=== PATIENT | male | born 1960 | race Caucasian/White ===

== ENCOUNTER 2025-06-01 12:31 | Emergency (ER) | payer BC, SELFPAY ==
[2025-06-01] VITALS (14 sets, daily range): BP systolic 126–152; BP diastolic 83–88; PULSE 79–82; TEMP 36.6; O2SAT 92–93; BMI 31.6
--- NOTE | 2025-06-01 13:27 | ECG_ITS ---
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 Measurements Intervals [place] Rate: 74 P: 26 MO: 162 QRS: 27 QRSD: 88 T: -30 QT: 354 QTc: 381 Interpretive Statements 1100 Sinus rhythm 4068 Nonspecific Twave abnormality 9130 borderline ECG Compared to ECG 06/01/2020 10:52:07 No significant changes Electronically Signed On 06-01-2025 17:24:16 EST by ERICK ORDONEZ M.D.
--- NOTE | 2025-06-01 13:27 | XR_ITS ---
The [address] [address] Patient Name: TITA POWERS MRN: [id number] date: 1960 Sex: M Assigned Patient Location: ER Current Patient Location: ED.MAIN Accession/Order Number: [id number] Exam Date: 06/01/2025 13:45 Report Date: 06/01/2025 14:01 At the request of: ROBERT SHEETS MD Procedure: XR chest 1V PORTABLE AP ERECT CHEST 1345 hours CLINICAL HISTORY: Right chest pain, shortness of breath and hemoptysis. Recent shoulder replacement. COMPARISON: 06/01/2020 There is shallow inspiration. The hemidiaphragms are not well seen, right greater than left. This could be due to adjacent basilar atelectasis and/or infiltrate. Pleural effusion is not excluded without a lateral view. No pneumothorax is identified. The heart appears mildly prominent though may be accentuated by low lung volume. The hilar and mediastinal contours are similar. A new left shoulder prosthesis is seen. XR/XR chest 1V IMPRESSION: SHALLOW INSPIRATION. BIBASILAR PARENCHYMAL AND POSSIBLE PLEURAL CHANGE. CLINICAL CORRELATION IS SUGGESTED. A 2 VIEW EXAM MAY BE HELPFUL FOR FOLLOW-UP, WARRANTED. Impression dictated by: Brittaney Langley M.D. 06/01/2025 2:01 PM Dictation Location: [facility] Electronically authenticated by: [id number] Y Date: 06/01/2025 14:01
--- NOTE | 2025-06-01 13:28 | ED_ITS ---
HPI HPI - General Adult General Chief complaint: Back Pain/Injury Stated complaint: SOB BACK PAIN Time Seen by Provider: 06/01/25 13:18 Source: patient Mode of arrival: walk-in Limitations: no limitations History of Present Illness HPI narrative: 64-year-old male presented to the emergency department for pain on the right side of his chest and cough and hemoptysis. He coughed up some dark blood twice. He had left shoulder replacement about a week ago at the [place] [facility]. He has never had a blood clot. He is a non-smoker. He states he has been getting up and moving around as much as he should be. No swelling in his legs or calf pain. Related Data Previous Rx's ?Medication ?Instructions ?Recorded azithromycin 250 mg tablet See Rx Instructions PO .COM PLEX #6 06/01/25 (Zithromax Z-Buddy) tabs Allergies Allergy/AdvReac Type Severity Reaction Status Date / Time lisinopril Allergy Unknown COUGHING Verified 06/01/25 12:37 tramadol Allergy Unknown HYPERACTIVI Verified 06/01/25 12:37 TY Opioid HPI Opioid Management Most Recent Opioid Data: Last Pain Scale 6 Today, 12:45 Review of Systems ROS Narrative A ten point review of systems is negative except as noted above. PFSH PFSH Social History Little interest or pleasure in doing things: not at all Feeling down, depressed, or hopeless: not at all Exam Narrative Exam Narrative: Nurses note and vital signs reviewed General:The patient appears well and in no apparent distress.Patient is resting comfortably on cart. Skin:Warm, dry, no pallor noted.There is no rash noted. Head:Normocephalic, atraumatic Eye: Normal conjunctiva, no drainage Ears, Nose, Mouth, and Throat: oral mucosa is moist. Nares patent. Cardiovascular:Regular Rate and Rhythm Respiratory:Patient is in no distress, no accessory muscle use, lungs are clear to auscultation, no wheezing, rales or rhonchi Back:non-tender GI: Soft and nontender Musculoskeletal: Left arm is in a sling. No calf tenderness or swelling Neurological:A&O, normal speech Psychiatric:Cooperative Constitutional Vital Signs, click to edit/add: Last Vital Signs Temp 97.8 F 06/01/25 12:37 Pulse 79 06/01/25 13:42 Resp 14 06/01/25 13:42 BP 142/83 H 06/01/25 14:44 Pulse Ox 92 L 06/01/25 14:50 O2 Del Method Room Air 06/01/25 12:45 Course Vital Signs Vital signs: Vital Signs Temperature 97.8 F 06/01/25 12:37 Pulse Rate 82 06/01/25 12:37 Respiratory Rate 18 06/01/25 12:37 Blood Pressure 152/88 H 06/01/25 12:37 Pulse Oximetry 92 L 06/01/25 12:37 Oxygen Delivery Method Room Air 06/01/25 12:37 Temperature 97.8 F 06/01/25 12:37 Pulse Rate 79 06/01/25 13:42 Respiratory Rate 14 06/01/25 13:42 Blood Pressure 142/83 H 06/01/25 14:44 Pulse Oximetry 92 L 06/01/25 14:50 Oxygen Delivery Method Room Air 06/01/25 12:45 Medical Decision Making MDM Narrative Medical decision making narrative: CTA shows no evidence of PE but does show pneumonia. He is not hypoxemic, current room air O2 sat is 94%. He does not have a fever and other blood work is appropriate. We discussed admission versus discharge home and the patient is comfortable being discharged home. He was given IV Zithromax here and prescribe Zithromax. He will return if symptoms worsen and otherwise will follow-up with his PCP. Treatment diagnosis and follow-up were discussed with the patient and his . Differential Diagnosis Differential Diagnosis: PE, pneumonia Lab Data Lab results reviewed: Yes I reviewed the patient's lab results Labs: Lab Results 06/01/25 Range/Units 13:37 WBC 14.4 H (4.0-11.0) 10^3/uL RBC 4.26 L (4.70-6.10) 10^6/uL Hgb 12.9 L (14.0-18.0) g/dL Hct 37.3 L (42.0-54.0) % MCV 87.6 (80.0-94.0) fL MCH 30.3 (25.9-34.0) pg MCHC 34.6 (29.9-35.2) g/dL RDW 12.0 (11.0-15.0) % Plt Count 239 (150-450) 10^3/uL MPV 9.0 L (9.5-13.5) fL Neut % (Auto) 81.5 H (43.0-75.0) % Lymph % (Auto) 7.4 L (20.5-60.0) % [place] % (Auto) 8.7 (1.7-12.0) % Eos % (Auto) 1.3 (0.9-7.0) % Baso % (Auto) 0.2 (0.2-2.0) % Neut # (Auto) 11.7 H (1.4-6.5) 10^3/uL Lymph # (Auto) 1.1 L (1.2-3.8) 10^3/uL [place] # (Auto) 1.3 H (0.3-0.8) 10^3/uL Eos # (Auto) 0.2 (0.0-0.7) 10^3/uL Baso # (Auto) 0.0 (0.0-0.1) 10^3/uL Abs Immat Gran (auto) 0.13 H (0.00-0.03) 10^3/uL Imm/Tot Granulo (auto) 0.9 H (0.0-0.5) % Sodium 135 L (136-145) mmol/L Potassium 3.8 (3.5-5.1) mmol/L Chloride 100 (98-107) mmol/L Carbon Dioxide 27.9 (21.0-32.0) mmol/L Anion Gap 10.9 BUN 19.0 H (7.0-18.0) mg/dL Creatinine 0.95 (0.70-1.30) mg/dL Est GFR ( Amer) >60 (>=60 mL/min/1.73m^2) Est GFR (Non-Af Amer) >60 (>=60 mL/min/1.73m^2) BUN/Creatinine Ratio 20.0 Glucose 107 H (74-106) mg/dL Calcium 9.6 (8.5-10.1) mg/dL Troponin I High Sens 7.1 (4.0-76.1) pg/mL Imaging Data Chest x-ray: Radiologist's impression: ITS Impressions Chest X-Ray 06/01/25 13:27 IMPRESSION: SHALLOW INSPIRATION. BIBASILAR PARENCHYMAL AND POSSIBLE PLEURAL CHANGE. CLINICAL CORRELATION IS SUGGESTED. A 2 VIEW EXAM MAY BE HELPFUL FOR FOLLOW-UP, WARRANTED. Impression dictated by: Brittaney Langley M.D. 06/01/2025 2:01 PM Dictation Location: [employer] Electronically authenticated by: [id number] Y Date: 06/01/2025 14:01 Chest CTA 06/01/25 14:05 IMPRESSION: Airspace opacities are noted in the right lower lobe suspicious for pneumonia. There is a small right-sided pleural effusion. There are lesser degrees of airspace opacity in the left lower lobe which are pleural in nature present representing atelectasis. No evidence of pulmonary embolism. Impression dictated by: Fuentes Bond M.D. 06/01/2025 3:06 PM Dictation Location: [employer] [facility] [employer] Electronically authenticated by: [id number] Y Date: 06/01/2025 15:06 ECG Data Attestation: I personally reviewed and interpreted this ECG as follows: (EKG my interpretation shows sinus rhythm with rate of 74 no acute change) Discharge Plan Discharge Chief Complaint: Back Pain/Injury Clinical Impression: Pneumonia Patient Disposition: Home, Self-Care Time of Disposition Decision: 16:06 Condition: Good Mode of Transportation: Private Vehicle Prescriptions / Home Meds: New azithromycin [Zithromax Z-Buddy] 250 mg tablet See Rx Instructions .ROUTE .COMPLEX Qty: 6 0RF Rx Instructions: For 250 mg dose pack: take 500 mg today (day 1), then 250 mg for 4 days (days 2-5) Print Language: Lithuanian Instructions: Community Acquired Pneumonia (ED) Additional Instructions: Return to the emergency department over the weekend if you worsen. See your doctor early next week for recheck. Referrals: KEVIN JI [Primary Care Provider, Family Practice] - 1 week
[2025-06-01 13:54] LABS: Hematocrit 37.3 % (42.0-54.0); Hemoglobin 12.9 g/dL (14.0-18.0); Immature Granulocytes Abs Auto 0.13 10^3/uL (0.00-0.03); Immature Granulocytes Pct Auto 0.9 % (0.0-0.5); Lymphocytes Absolute Auto 1.1 10^3/uL (1.2-3.8); Mean Corpuscular HGB Conc 34.6 g/dL (29.9-35.2); Mean Corpuscular Hemoglobin 30.3 pg (25.9-34.0); Mean Corpuscular Volume 87.6 fL (80.0-94.0); Platelet Count 239 10^3/uL (150-450); Red Blood Count 4.26 10^6/uL (4.70-6.10); White Blood Count 14.4 10^3/uL (4.0-11.0)
--- NOTE | 2025-06-01 14:05 | CT_ITS ---
[address] [address] Patient Name: TITA POWERS MRN: [id number] date: 1960 Sex: M Assigned Patient Location: ER [facility] Access[facility]/Order Number: [id number] Exam Date: 06/01/2025 14:30 Report Date: 06/01/2025 15:06 At the request of: ROBERT SHEETS MD Procedure: CT angio chest CT angio chest 06/01/2025 2:38 PM SIGN AND SYMPTOMS: ^Short of breath, hemoptysis, recent surgery CONTRAST: 100 mL of intrasinus Omnipaque 350 TECHNIQUE: Multidetector CT axial slices of the chest were obtained with IV contrast. Multiplanar reformats were performed and viewed on a separate workstation and reviewed to further define anatomy and possible pathology. CT was performed with one or more of the following dose reduction techniques: Automated exposure control, adjustment of the mA and/or kV according to patient size, or use of iterative reconstruction technique. COMPARISON: None. FINDINGS: Lower neck: Thyroid gland within normal limits, no supraclavicle adenopathy. Vessels: Atherosclerotic changes are noted in the coronary arteries. There is no evidence of pulmonary embolism. Mediastinum and Marium: Within normal limits. Heart: Normal size. No pericardial effusion. Airways: Within normal limits Lungs: Airspace opacities are noted in the right lower lobe suspicious for pneumonia. There are lesser degrees of airspace opacity in the left lower lobe which are pleural in nature present representing atelectasis. Pleura: There is a small right-sided pleural effusion. Chest Wall: Postsurgical changes are noted along the anterior aspect of the left shoulder. Upper Abdomen: Within normal limits. Bones: There is left shoulder arthroplasty hardware. Degenerative changes are noted in the thoracic spine. CT/CT angio chest IMPRESSION: Airspace opacities are noted in the right lower lobe suspicious for pneumonia. There is a small right-sided pleural effusion. There are lesser degrees of airspace opacity in the left lower lobe which are pleural in nature present representing atelectasis. No evidence of pulmonary embolism. Impression dictated by: Fuentes Bond M.D. 06/01/2025 3:06 PM Dictation Location: [place] [address] Electronically authenticated by: [id number] Y Date: 06/01/2025 15:06
[2025-06-01 14:14] LABS: Anion Gap 10.9; Blood Urea Nitrogen 19.0 mg/dL (7.0-18.0); Calcium 9.6 mg/dL (8.5-10.1); Carbon Dioxide 27.9 mmol/L (21.0-32.0); Chloride 100 mmol/L (98-107); Estimated GFR (African America >60 (>=60 mL/min/1.73m^2); Estimated GFR (Non-African Ame >60 (>=60 mL/min/1.73m^2); Glucose 107 mg/dL (74-106); Potassium 3.8 mmol/L (3.5-5.1); Sodium 135 mmol/L (136-145)
[2025-06-01] MEDS: AZITHROMYCIN 500 MG in 0.9 % SODIUM CHLORIDE 250 ML 250 MG IV (15:26)
== END 2025-06-01 16:48 | disposition home or self-care (01) ==
PROVIDERS: Emergency Provider Emergency Medicine; PCP Family Medicine
DX: J18.9 Pneumonia, unspecified organism (principal); Z98.890 Other specified postprocedural states; Z96.612 Presence of left artificial shoulder joint
CPT/HCPCS: 36415; 71045; 71275; 80048; 84484; 85025; 93005; 96365; 99285; J0456; Q9967